=== PATIENT | male | born 1985 | race Caucasian/White ===

== ENCOUNTER → 2020-03-21 | Outpatient (CLI) | payer BC ==
[~2020-03-21] MED LIST: HOLD METFORMIN - RECEIVED CONTRAST 20 ML VIAL IV SCH; IOHEXOL 350 MG/ML 100 ML (OMNIPAQUE 350) VIAL IV ONE; NS 100 ML (IVPB) BAG IV ONE
--- NOTE | 2020-03-21 08:33 | Diagnostic Imaging Report ---
EXAMINATION: CT Abdomen and Pelvis with intravenous contrast. TECHNIQUE: Multiple contiguous axial images were obtained through the abdomen and pelvis after the uneventful administration of intravenous contrast. All CT scans use one or more of the following dose optimizing techniques: automated exposure control, MA and/or KvP adjustment based on a patient size and exam type, or iterative reconstruction. HISTORY: Low back pain. COMPARISON: None available. FINDINGS: Limited views of the lower thorax show a 2 mm left lower lobe nodule, no specific follow-up is needed. The liver is normal without focal lesion. There is no biliary ductal dilation. Gallbladder is normal. Pancreas is normal. Spleen is normal. Adrenal glands are normal. The kidneys are normal. There is no hydronephrosis. Urinary bladder is normal. Visualized bowel is normal in caliber without obstruction or inflammation. No free fluid or air. No abdominal or pelvic lymphadenopathy. Aorta is normal in caliber without aneurysm. There are no suspicious osseus lesions. IMPRESSION: 1. No acute abnormality in the abdomen or pelvis. Dictated by: Dictated on workstation # [id number]
== END ==
LOC: RAD 07:45
PROVIDERS: ATTEND Urology
DX: N41.9 Inflammatory disease of prostate, unspecified (principal); M54.5 Low back pain
CPT/HCPCS: 74177

== ENCOUNTER → 2021-02-12 | Outpatient (CLI) | payer BC ==
--- NOTE | 2021-02-12 13:07 | Diagnostic Imaging Report ---
INDICATION: Dyspnea. FINDINGS: PA and lateral views. The lungs are well aerated and clear. Heart is not enlarged. There is no pulmonary edema or hilar adenopathy. No pneumothorax or pleural effusion. No bony abnormalities. IMPRESSION: Normal PA and lateral chest. Dictated by: Dictated on workstation # [id number]
== END ==
LOC: RAD 11:49
DX: R06.00 Dyspnea, unspecified (principal)
CPT/HCPCS: 71046

== ENCOUNTER → 2022-06-24 | Outpatient (CLI) | payer BC | LOC: CARD 11:53 | PROVIDERS: ATTEND Internal Medicine | DX: R00.0 Tachycardia, unspecified (principal) | CPT/HCPCS: 93225; 93226 ==

== ENCOUNTER → 2022-06-27 | Outpatient (CLI) | payer BC ==
--- NOTE | 2022-06-27 15:10 | Diagnostic Imaging Report ---
INDICATION: Pneumonia. Left-sided rib pain. COMPARISON: 02/12/2021. FINDINGS: Frontal radiographic view of the chest shows normal cardiac silhouette and pulmonary vasculature. Lungs are clear. There is no focal consolidation, large effusion or pneumothorax. Multiple radiographic views of the left ribs were also obtained. No healing or displaced left-sided rib fractures are seen. No other gross acute osseous abnormality is identified. IMPRESSION: 1. No acute cardiopulmonary process. 2. No healing or displaced left rib fractures. Dictated by: Dictated on workstation # [id number]
== END ==
LOC: RAD 14:16
PROVIDERS: ATTEND Registered Nurse Critical Care Medicine
DX: G44.229 Chronic tension-type headache, not intractable (principal); J15.8 Pneumonia due to other specified bacteria
CPT/HCPCS: 71101

== ENCOUNTER → 2022-07-25 | Outpatient (CLI) | payer BC ==
--- NOTE | 2022-07-25 09:51 | Diagnostic Imaging Report ---
PROCEDURE: US Venous Lower Ext Nick. TECHNIQUE: Multiple real-time grayscale images were obtained over the lower extremities in various projections, bilaterally. Additional duplex Doppler and color Doppler images were also obtained. INDICATION: Bilateral calf pain The veins of lower extremities have good color filling and compressibility. There is phasic flow and a normal response to augmentation. IMPRESSION: Negative venous Doppler lower extremities Dictated by: Dictated on workstation # [id number]
== END ==
LOC: RAD 08:30
PROVIDERS: ATTEND Internal Medicine Cardiovascular Disease
DX: I11.9 Hypertensive heart disease without heart failure (principal); I25.10 Atherosclerotic heart disease of native coronary artery without angina pectoris; M79.661 Pain in right lower leg
CPT/HCPCS: 93970; C8929; 93306

== ENCOUNTER → 2022-08-20 | Outpatient (CLI) | payer BC ==
[~2022-08-20] MED LIST changes: +CATHETER FLUSH 10 ML SYR IVP PRN; -HOLD METFORMIN - RECEIVED CONTRAST 20 ML VIAL IV SCH; -IOHEXOL 350 MG/ML 100 ML (OMNIPAQUE 350) VIAL IV ONE; -NS 100 ML (IVPB) BAG IV ONE
[2022-08-20 09:13] VITALS: BP 136/85
[2022-08-20 09:22] VITALS: BP 175/88
--- NOTE | 2022-08-20 14:09 | Cardiology Stress Test Report ---
Stress Test Report Date of Procedure/Referring: Date of Procedure: Aug 20, 2022 PCP Alissa Villeda DO Admitting Physician Admitting Physician: Attending Physician: Milton Rodríguez MD Baseline Heart Rate: 72 Baseline Blood Pressure: Blood Pressure Systolic: 175 Blood Pressure Diastolic: 88 Vital Signs Date Time Temp Pulse Resp B/P (MAP) Pulse Ox O2 Delivery O2 Flow Rate FiO2 08/20/22 09:13 120 22 136/85 (102) Baseline Vital Signs Vital Signs Date Time Temp Pulse Resp B/P (MAP) Pulse Ox O2 Delivery O2 Flow Rate FiO2 08/20/22 09:13 120 22 136/85 (102) Baseline EKG: Baseline EKG: NSR Summary: After explaining the procedure and details to the patient, he signed the consent and was brought to the stress nuclear laboratory. Patient exercised on standard Cecil protocol, EKG, heart rate and blood pressure were monitored continuously, resting and stress doses of radio tracer were injected, imaging was acquired and reviewed in the short axis, horizontal long axis and vertical long axis views Patient was able to exercise for a total of 10.30 minutes on Cecil protocol, METs 12.1 Maximum heart rate 177 Maximum blood pressure 178/80 Stress EKG, Minimal nondiagnostic changes Recovery EKG, Return to baseline TID: 0.88 SSS: 0 SDS: 0 EF: 60 Conclusion: Good exercise tolerance for a total of 10 minutes 30 seconds on standard Ceicl protocol, 12.1 METS achieving 97% of maximum expected heart rate Appropriate heart rate and blood pressure response to exercise return to baseline during recovery Minimal nondiagnostic EKG changes with exercise return to baseline during recovery No ischemia or infarction noted on SPECT images Normal left ventricular size, EF 60% MILTON RODRÍGUEZ MD Aug 20, 2022 14:09
== END ==
LOC: CARD 07:21
PROVIDERS: ATTEND Internal Medicine Cardiovascular Disease
DX: R07.9 Chest pain, unspecified (principal)
CPT/HCPCS: 78452; 93017; A9502

== ENCOUNTER 2023-02-11 05:41 | Outpatient (CLI) | payer BC ==
[~2023-02-11] VITALS: Ht 177.8 cm; Wt 92.9 kg
[2023-02-12] MEDS ORDERED: PANT40TA52 PO (16:01)
[2023-02-12] MEDS ORDERED: ASCO100025 PO (16:01)
[2023-02-12] MEDS ORDERED: OMEG100032 PO (16:01)
[2023-02-12] MEDS ORDERED: POTA99CA PO (16:01)
[2023-02-12] MEDS ORDERED: MONT-47 PO (16:01)
== END 2023-02-12 16:05 | disposition home or self-care (01) ==
LOC: PREOP 05:41
PROVIDERS: ATTEND Surgery
DX: Z01.818 Encounter for other preprocedural examination (principal)

== ENCOUNTER 2023-02-24 11:29 | Day surgery (SDC) | payer BC ==
[~2023-02-24] VITALS: Ht 177.8 cm; Wt 92.9 kg
[~2023-02-24 11:29] MED LIST changes: +ASCO100025 PO; -CATHETER FLUSH 10 ML SYR IVP PRN; +MONT-47 PO; +OMEG100032 PO; +PANT40TA52 PO; +POTA99CA PO
[2023-02-24] MEDS ORDERED: LACTATED RINGERS 1,000 ML 1,000 ML IV STA (11:31)
[2023-02-24] MEDS ORDERED: HURRICAINE EXT TUBE (BENZOCAINE) XX PRN (11:45)
[2023-02-24] MEDS ORDERED: HURRICAINE EXT TUBE (BENZOCAINE) ONE (11:46)
[2023-02-24] MEDS ORDERED: LACTATED RINGERS 1,000 ML 1,000 ML IV ONE (11:46)
[2023-02-24 12:00] VITALS: BP 134/82
--- NOTE | 2023-02-24 12:59 | Progress Note-Pre Operative ---
Pre-Operative Progress Note Date H&P Reviewed: Feb 24, 2023 Time H&P Reviewed: 12:59 History & Physical: H&P Reviewed, Patient Examed, No changes noted Pre-Operative Diagnosis: generalized abdominal pain SUSANNE PETERSEN DO Feb 24, 2023 12:59
[2023-02-24] MEDS ORDERED: proPOfol INJECTION 200 MG/20 ML VIAL IV ONE (13:03)
[2023-02-24] MEDS ORDERED: MIDAZOLAM INJ 2 MG/2 ML VIAL ONE (13:03)
[2023-02-24 13:15] VITALS: BP 102/59
--- NOTE | 2023-02-24 13:15 | Progress Note-Post Operative ---
Post-Operative Progess Note Surgeon (s)/Rn Anesthetist (s) Surgeon SUSANNE PETERSEN DO Rn Anesthetist: NA Pre-Operative Diagnosis generalized abdominal pain Post-Operative Diagnosis slight gastritis Procedure & Operative Findings Date of Procedure 02/24/23 Procedure Performed/Findings EGD with biopsies Anesthesia Type per [employer] Estimated Blood Loss Estimated blood loss (mL): none Specimens/Packing Specimens Removed GE and antrum SUSANNE PETERSEN DO Feb 24, 2023 13:15
[2023-02-24] MEDS ORDERED: PANT40TA2 PO (13:16)
--- NOTE | 2023-02-24 13:16 | Discharge Inst-Simple/Standard ---
Discharge Inst-Standard Discharge Medications New, Converted or Re-Newed RX: Transmitted to Pharmacy Patient Instructions/Follow Up Plan of Care/Instructions/FU: 2-3 weeks roc Activity as Tolerated: Yes Discharge Diet: Regular Diet SUSANNE PETERSEN DO Feb 24, 2023 13:16
[2023-02-24 13:20] VITALS: BP 101/61
[2023-02-24 13:25] VITALS: BP 104/59
[2023-02-24 13:50] VITALS: BP 104/58
--- NOTE | 2023-02-24 14:18 | Anesthesia-General Post-Op ---
MAC Patient Condition Mental Status/LOC: Same as Preop Cardiovascular: Satisfactory Nausea/Vomiting: Absent Respiratory: Satisfactory Pain: Controlled Complications: Absent Post Op Complications Complications None Follow Up Care/Instructions Patient Instructions None needed. Anesthesiology Discharge Order Discharge Order Patient is doing well, no complaints, stable vital signs, no apparent adverse anesthesia problems. No complications reported per nursing. MARKEL GAMEZ CRNA Feb 24, 2023 14:18
--- NOTE | 2023-02-24 19:43 | OPERATIVE REPORT ---
DATE OF SERVICE: 02/24/2023 PREOPERATIVE DIAGNOSIS: Generalized abdominal pain. POSTOPERATIVE DIAGNOSIS: Slight gastritis. PROCEDURE: EGD with biopsy. SURGEON: Susanne Lomax DO ANESTHESIA: Per [employer]ORER. ESTIMATED BLOOD LOSS: None. COMPLICATIONS: None. INDICATIONS: The patient is a 37-year-old male with generalized abdominal pain, thought to be more related to reflux. He is recommended to have EGD for further evaluation. He understands and wishes to proceed. Consent was signed in chart. DESCRIPTION OF PROCEDURE: The patient was taken to endoscopy suite, placed in left lateral recumbent position. Timeout was performed. Scope was inserted in the mouth, down the esophagus, stomach, into the duodenum without difficulty. No polyps, masses or ulcerations within the duodenum. Scope was slowly retracted back. No polyps, masses or ulcerations in the stomach. Slight erythematous changes present. Biopsy of the antrum was obtained. Scope was retroflexed noting no other pathology. Scope was returned to its normal position, slowly withdrawn until distal esophagus. Biopsy of GE junction was obtained. No polyps, masses or ulcerations. Scope was slowly retracted back until completely removed. The patient tolerated the procedure well without complications, taken to recovery room in stable condition. RECOMMENDATIONS: The patient will be started on Protonix 40 mg daily. We will have him follow up on biopsies in 2-3 weeks to see how symptoms are doing. Further recommendation pending biopsy results. Job ID: [id number] DocumentID: [id number] Dictated Date: 02/24/2023 13:17:04 Com Writer Date: 02/24/2023 19:42:00 Dictated By: SUSANNE LOMAX DO
== END 2023-02-24 14:00 | disposition home or self-care (01) ==
LOC: ENDO 11:29
PROVIDERS: ATTEND Surgery
DX: K29.70 Gastritis, unspecified, without bleeding (principal); Z87.891 Personal history of nicotine dependence; R53.83 Other fatigue; R42 Dizziness and giddiness